=== PATIENT | female | born 1995 | race Caucasian/White ===

== ENCOUNTER → 2016-05-30 | Outpatient (CLI) | payer BC, OTHER ==
[~2016-05-30] MED LIST: BCPILLS PO
--- NOTE | 2016-05-30 14:44 | DIAGNOSTIC IMAGING REPORT ---
LEFT TIBIA/FIBULA 2 VIEWS CLINICAL HISTORY: LEFT LOWER LEG PAIN AND SWELLING COMPARISON: None. DISCUSSION: No fractures or dislocations are visualized. There are no areas of periostitis. IMPRESSION: No fractures or areas of periostitis are visualized Electronically signed by: Corona Adkins M.D. 05/30/2016 2:43 PM Dictated Date/Time: 05/30/2016 2:42 PM
== END | disposition home or self-care (01) ==
LOC: C.RDSM 14:15
PROVIDERS: ATTEND Family Medicine
DX: M79.605 Pain in left leg (principal)

== ENCOUNTER → 2017-01-05 | Outpatient (CLI) | payer BC, OTHER | END | disposition home or self-care (01) | LOC: C.LAB1850 13:12 | PROVIDERS: ATTEND Family Medicine | DX: R30.0 Dysuria (principal) ==